=== PATIENT | male | born 1975 | race Caucasian/White ===

== ENCOUNTER 2018-02-08 11:34 | Emergency (ER) | payer MEDICAID, OTHER ==
[2018-02-08] MEDS: IBUPROFEN 600 MG TAB PO (11:57)
== END 2018-02-08 14:15 | disposition home or self-care (01) ==
LOC: FTE 11:34
DX: S90.01XA Contusion of right ankle, initial encounter (principal); W31.89XA Contact with other specified machinery, initial encounter; Y92.89 Other specified places as the place of occurrence of the external cause
CPT/HCPCS: 73610; 73610-RT; 99283-25